=== PATIENT | female | born 1945 | race Caucasian/White ===

== ENCOUNTER → 2020-05-12 | Outpatient (CLI) | payer OTHER ==
[~2020-05-12] MED LIST: AMBIEN 10 MG TA10 MG PO; CALTRATE 600 +1 EACH PO; CLARITIN5 MG PO; COLACE100 MG PO; FEMARA2.5 MG PO; FLEXERIL PO; GABAPENTIN100 MG PO; HYDROCODONE-APA1 TA1 PO; LEVAQUIN 500 M500 MG PO; MOBIC15 MG PO; NEXIUM 40 MG CA40 M1 PO; PERCOCET 5-3251 EACH PO; PREDNISONE 20 M20 M1 PO; PROVENTIL HFA6.7 G1 INH; VITAMIN B-12100 MCG PO; VITAMIN D22000 UNIT PO; VITCB500GO; ZOFRAN ODT4 MG PO
== END ==
LOC: LAB 08:00
PROVIDERS: ATTEND Internal Medicine Cardiovascular Disease
DX: Z01.818 Encounter for other preprocedural examination (principal); Z11.59 Encounter for screening for other viral diseases

== ENCOUNTER → 2020-06-27 | Outpatient (CLI) | payer OTHER, MEDICARE | LOC: LAB 10:16 | PROVIDERS: ATTEND Internal Medicine Cardiovascular Disease | DX: Z20.828 Contact with and (suspected) exposure to other viral communicable diseases (principal) ==